=== PATIENT | male | born 1980 | race Two or more races ===

== ENCOUNTER 2019-01-30 10:35 | Emergency (ER) | payer SELFPAY | END 2019-01-30 12:30 | disposition home or self-care (01) | LOC: JERFT 10:35 → JER 12:30 ==

== ENCOUNTER 2019-02-01 16:12 | Emergency (ER) | payer SELFPAY | END 2019-02-01 17:05 | disposition home or self-care (01) | LOC: JERFT 16:12 ==

== ENCOUNTER 2023-03-18 11:57 | Emergency (ER) | payer SELFPAY ==
[2023-03-18 12:05] VITALS: BP 131/79; PULSE 71; RESP 18; TEMP 99.1; BMI 27.8
[2023-03-18] MEDS ORDERED: ACETAMINOPHEN 500 MG TABLET (FP) PO ONE (12:41)
[2023-03-18] MEDS ORDERED: CYCLOBENZAPRINE HCL 10 MG TABLET (FP) PO ONE (12:41)
[2023-03-18] MEDS ORDERED: KETOROLAC TROMETHAMINE 30 MG/1 ML VIAL IM ONE (12:41)
[2023-03-18] MEDS ORDERED: KETOROLAC TROMETHAMINE 30 MG/1 ML VIAL ONE (12:47)
[2023-03-18] MEDS ORDERED: CYCLOBENZAPRINE HCL 10 MG TABLET (FP) ONE (12:47)
[2023-03-18] MEDS ORDERED: ACETAMINOPHEN 500 MG TABLET (FP) ONE (12:48)
== END 2023-03-18 13:38 | disposition home or self-care (01) ==
LOC: JERFT 11:57
PROC: 3E0333Z Introduction of Anti-inflammatory into Peripheral Vein, Percutaneous Approach (ICD-10-PCS; principal; 2023-03-18)
DX: M54.32 Sciatica, left side (principal); M54.50 Low back pain, unspecified; M79.10 Myalgia, unspecified site; M79.662 Pain in left lower leg
CPT/HCPCS: 99284-25